=== PATIENT | female | born 1970 | race Caucasian/White ===

== ENCOUNTER → 2017-12-07 | Outpatient (CLI) | payer OTHER ==
[~2017-12-07] MED LIST: ALB18R INH; AMO250 PO; BIRTH CONTROL; FLU60VIA41 IM; FLUT1DIS28 IH; GUAI600T57 PO; HYDR115S2 PO; HYDR5SUS PO; NORG1TAB16 PO; SPIR100T33 PO; VITAMINS; [UNRECOGNIZED DRUG - CODE] PO
[2017-12-07 09:20] LABS: LDL CHOLESTEROL 122 mg/dl
== END ==
LOC: LAB 08:41
PROVIDERS: ATTEND Emergency Medicine
DX: L70.9 Acne, unspecified (principal)
CPT/HCPCS: 36415; 82310; 82374; 82435; 82465; 82565; 82947; 83718; 84132; 84295; 84443; 84478; 84520

== ENCOUNTER 2018-02-06 01:08 | Day surgery (SDC) | payer OTHER ==
[~2018-02-06] VITALS: Ht 167.6 cm; Wt 113.9 kg
[2018-02-06] VITALS (8 sets, daily range): BP systolic 109–129; BP diastolic 67–87
[2018-02-06] MEDS ORDERED: PROPOFOL EMUL(*) 10MG/ML 20 ML 20 ML ONE ×2 (07:04→11:33)
[2018-02-06] MEDS ORDERED: NORMOSOL R SOLN(*) 1000 ML BAG 1,000 ML IV PRN (11:55)
[2018-02-06] MEDS ORDERED: LIDOCAINE/SOD BICARB 8.4% SYR ID ONE (11:55)
--- NOTE | 2018-02-06 12:17 | Short(Outpt) Discharge Summary ---
Discharge Summary Reason for Hosp/Final Diag: (1) Screening for colorectal cancer Status: Chronic Hospital Course & Plan: Colonoscopy completed without problems. (2) H/O diverticulitis of colon Status: Chronic Departure Discharge to: Home, Self Care Discharge Instructions Home Meds Reported Medications Spironolactone (SPIRONOLACTONE) 100 Mg Tablet, 100 MG PO DAILY 12/07/17 Diet: Regular Activity: As Tolerated Special Instructions: Your colonoscopy was completed without any problems and your prep was excellent (Good Job!!). Other than the diverticuli, I didn't find any other abnormalities such as inflammation, polyps, cancers, etc. I recommend that you undergo another colonoscopy in 10 years for screening. KURTIS HAYNES MD Feb 06, 2018 12:17
== END 2018-02-06 13:10 | disposition home or self-care (01) ==
LOC: OR 01:08
PROVIDERS: ATTEND Surgery
DX: Z12.11 Encounter for screening for malignant neoplasm of colon (principal)
CPT/HCPCS: 00812; 81025; G0121; J2704

== ENCOUNTER → 2018-10-02 | Outpatient (CLI) | payer OTHER ==
[~2018-10-02] MED LIST changes: +ALBU2.5V36 INH; +AMOX-559 PO; +BENZ100C4 PO; +FLUT9.9S16 NS; +PRED20TA6 PO
[2018-10-02 11:11] LABS: PLATELET COUNT, AUTOMATED 381 K/uL (150-450)
--- NOTE | 2018-10-02 13:54 | RADIOLOGY IMAGING REPORT ---
FACILITY: [facility] PATIENT NAME: Rebecca Gallardo : 1970 MR: [id number] V: [id number] EXAM DATE: ORDERING PHYSICIAN: JOANNA ELAIS TECHNOLOGIST: Location: [facility] Patient: Rebecca Gallardo : 1970 Visit/Account:[id number] Date of Sevice: 10/02/2018 CT CTA CHEST W & W/O CON HISTORY: Dyspnea ADDITIONAL HISTORY: None. TECHNIQUE: CTA chest with intravenous contrast. Axial imaging acquired following administration of IV contrast timed for maximum opacification of the pulmonary arterial vasculature. Slab 3-D MIP jannette nstructed images were also created for further evaluation and interpretation. Reconstruction of the [facility] data set includes multiplanar 2-D in the sagittal and coronal planes and 3-D reconstructed rishabh nal slab MIP series. 3-D images were created by the technologist.Dose Lowering Technique One of the following dose optimization techniques was utilized in the performance of this exam: Autom ated exposure control; adjustment of the mA and/or kV according to the patient's size; or use of an i terative reconstruction technique. Specific details can be referenced in the facility's radiology C T exam operational policy. CONTRAST: 75 mL Isovue-370 COMPARISON: CT abdomen and pelvis March 12, 2016 FINDINGS: Lungs/pleura: The previously noted 4 mm noncalcified nodule posterior aspect of the left lower lobe appears unchanged and is best appreciated on image 196 of series 6. There is a 5 mm noncalcified nod ule posterior lateral left lower lobe best appreciated on image 204 likewise appears unchanged For the slight difference in slice thickness There is a 3 mm nodule abutting the major fissure on the left in the superior segment of the left low er lobe best appreciated on image 1:30 which also appears unchanged There is a 4 mm nodule left upper lobe best appreciated on image 120. This area was not included on the prior CT There is a 4 mm noncalcified nodule inferior aspect the right middle lobe that also appears unchanged and is best seen on image 179 There is peribronchial thickening present centrally. Scattered groundglass densities throughout the lungs may be chronic or related to dependent change. There is no evidence of pleural effusions. Heart/vessels: Negative. There are no filling defects seen in the pulmonary arteries worrisome for a pulmonary embolus. Mediastinum/lymph nodes: Negative. Visualized upper abdomen: Negative. Bones/soft tissues: Negative. Additional findings: None IMPRESSION: There bilateral pulmonary nodules ranging in size up to 4 mm. All of these appear stable when compar ed to the prior CT other than a 4 mm nodule in the left upper lobe which was not included in the scan slices on the prior CT the abdomen and pelvis please see [employer] recommendations below Peribronchial thickening centrally which could be chronic although an acute peribronchial inflammator y processes in the differential diagnosis. Scattered groundglass densities throughout the lungs may be chronic or related to dependent change No evidence of pulmonary emboli [employer] FOLLOW-UP GUIDELINES FOR NEWLY DETECTED INCIDENTAL NODULES IN PERSONS 35 YEARS OF AGE OR OLDER. *These recommendations do NOT apply to lung cancer screening, patients with immunosuppression or inna ents with a known primary malignancy. MULTIPLE SOLID NODULES If nodule size is < 6 mm: * Low risk patient ? No routine follow-up. * High risk patient ? Optional CT at 12 months. If nodule size is 6-8 mm: * Low risk patient ? CT at 3-6 months, then consider CT at 18-24 months if no change. * High risk patient ? CT at 3-6 months, then CT at 18-24 months if no change. If nodule size is > 8 mm: * Low risk patient ? CT at 3-6 months, then consider CT at 18-24 months if no change. * High risk patient ? CT at 3-6 months, then consider CT at 18-24 months if no change. LOW RISK PATIENT: Minimal or absent history f tobacco use and of other known risk factors. HIGH RISK PATIENT: Tobacco use, family history of lung cancer, upper pulmonary lobe location of nodul e, presence of emphysema, pulmonary fibrosis, older age.Kp H, Jessica DP, Abbe JM, et al. Guidel ron for Management of Incidental Pulmonary Nodules Detected on CT Images: From the [employer] y 2017. Radiology. [facility] A message was called to JOANNA ELIAS at 10/02/2018 1:43 PM. Report Dictated By: Mandi Chung MD at 10/02/2018 1:07 PM Report E-Signed By: Mandi Chung MD at 10/02/2018 1:45 PM WSN:[id number]
--- NOTE | 2018-10-02 16:13 | EKG ---
FACILITY: [facility] [place] PATIENT NAME: GABRIEL ROBLERO : [id number] MR: [id number] V: [id number] EXAM DATE: ORDERING PHYSICIAN: JOANNA ELIAS TECHNOLOGIST: TERESE CHAN Test Reason : Pre-syncope Blood Pressure : / mmHG Vent. Rate : 072 BPM Atrial Rate : 072 BPM P-R Int : 144 ms QRS Dur : 080 ms QT Int : 384 ms P-R-T Axes : 039 024 046 degrees QTc Int : 420 ms Normal sinus rhythm Normal ECG No previous ECGs available Confirmed by JOANNA ELIAS ([id number]) on 10/04/2018 1:01:20 PM Referred By: LUIZA Confirmed By:JOANNA ELIAS
== END ==
LOC: LAB 10:53
PROVIDERS: ATTEND Emergency Medicine
DX: R06.00 Dyspnea, unspecified (principal); R91.8 Other nonspecific abnormal finding of lung field; R55 Syncope and collapse
CPT/HCPCS: 36415; 71275; 85025; 85379; 86140; Q9967; 82040; 82247; 82310; 82374; 82435; 82565; 82947; 84075; 84132; 84155; 84295; 84450; 84460; 84520